=== PATIENT | female | born 1980 | race African-American/Black ===

== ENCOUNTER 2024-02-13 21:13 | Emergency (ER) | payer MEDICAID ==
[~2024-02-13] VITALS: Ht 160 cm; Wt 95.1 kg
[2024-02-13 21:33] VITALS: TEMP 98.5; O2SAT 100
[2024-02-14] MEDS: TETANUS, DIPHTHERIA, PERTUSSIS VAC/PF 0.5ML (>10YR OLD) IM ONE (00:53)
[2024-02-14] MEDS: LIDOCAINE HCL 1% 20ML VIAL INFIL ONE (00:53)
[2024-02-14] MEDS ORDERED: CEPH500T MT (01:01)
[2024-02-14] MEDS: ACETAMINOPHEN 325MG TABLET PO ONE (03:00)
[2024-02-14] MEDS: HYDRALAZINE HCL 10MG TABLET PO ONE (03:00)
[2024-02-14 03:35] VITALS: BP 141/71; PULSE 82; RESP 18
== END 2024-02-14 04:09 | disposition home or self-care (01) ==
LOC: ER 21:13
DX: S61.412A Laceration without foreign body of left hand, initial encounter (principal); J45.909 Unspecified asthma, uncomplicated; I10 Essential (primary) hypertension; X58.XXXA Exposure to other specified factors, initial encounter; Y93.89 Activity, other specified; Y92.89 Other specified places as the place of occurrence of the external cause; Y99.8 Other external cause status
CPT/HCPCS: 99283; 81025; 73120; 12002; 90715; 90471; J3490